=== PATIENT | female | born 1960 | race Caucasian/White ===

== ENCOUNTER 2017-07-24 01:43 | Inpatient (IN) | payer SELFPAY ==
[~2017-07-24] VITALS: Ht 162.6 cm; Wt 65.6 kg
[2017-07-24] VITALS (8 sets, daily range): BP systolic 155–185; BP diastolic 90–115; PULSE 71–80; RESP 14–18; TEMP 97.7–98.5; O2SAT 95–99
[2017-07-24] MEDS ORDERED: IOHEXOL 350 MG/ML 10 ML VIAL (for RAD DIAG) IVCONTRAST ONE (01:44)
[2017-07-24] MEDS ORDERED: SODIUM CHLORIDE 0.9% FLUSH 10 ML FLUSH IVF PRN (03:45)
--- NOTE | 2017-07-24 03:48 | PD ---
HPI Chief Complaint: Numbness/Tingling Time Seen by Provider: 03:42 Travel History International Travel<30 days: No Contact w/Intl Traveler<30days: No Traveled to known affect area: No History of Present Illness HPI 57-year-old female presents to the emergency department by private transportation the care of her spouse for evaluation of dizziness since with worsening and intermittent weakness of the upper extremities left greater than right. Patient notes that she has difficulty holding a pen and writing. Patient is left-handed. Patient denies any headache or visual disturbance. Spouse notices left-sided facial droop that is new. Patient's had no difficulty with her speech. Patient's had no visual disturbance. Patient denies dyslipidemia or loss of vision. Patient's had no chest pain shortness of breath applications nausea vomiting near-syncope or syncope. Patient denies any near fall or injury. Patient does complain of left posterior neck pain. Patient denies any sudden onset thunderclap or worst ever headache. Patient was presented treated for hypertension but takes no medications at this time. Patient admits to tobacco use. Patient has family history of heart disease in her father who passed or for prostate cancer. Patient denies personal history of CAD dyslipidemia and diabetes. [facility] Past Medical History Narrative Medical Hypertension tobaccoism nursing notes reviewed Medical History: Denies Significant Hx Diminished Hearing: No Tetanus Vaccination: Unknown Influenza Vaccination: No Past Surgical History Section: Yes (3) Social History Alcohol Use: No Tobacco Use: Yes (06/26 ppd) Substance Use: No Allergies-Medications (Allergen,Severity, Reaction): Coded Allergies: No Known Allergies (Unverified , 07/24/17) Reported Meds & Prescriptions Reported Meds & Active Scripts Active No Active Prescriptions or Reported Medications Review of Systems Except as stated in HPI: all other systems reviewed are Neg Physical Exam Narrative GENERAL: Well-developed well-nourished female in no acute distress no respiratory distress; GCS 15 SKIN: Warm and dry. HEAD: Atraumatic. Normocephalic. EYES: Pupils equal and round. Extraocular muscles intact. No scleral icterus. No injection or drainage. ENT: No nasal bleeding or discharge. Mucous membranes pink and moist. Airway is patent. NECK: Trachea midline. No JVD. No midline tenderness to direct palpation along the cervical spine no bony step-off. CARDIOVASCULAR: Regular rate and rhythm. RESPIRATORY: No accessory muscle use. Clear to auscultation. Breath sounds equal bilaterally. GASTROINTESTINAL: Abdomen soft, non-tender, nondistended. Hepatic and splenic margins not palpable. MUSCULOSKELETAL: Extremities without clubbing, cyanosis, or edema. No obvious deformities. NEUROLOGICAL: Awake and alert. No obvious cranial nerve deficits except left facial droop. Motor grossly within normal limits. Five out of 5 muscle strength in the arms and legs. No limb ataxia. No pronator drift. Sensory exam grossly intact as tested. Normal speech. PSYCHIATRIC: Appropriate mood and affect; insight and judgment normal. Data Data Last Documented VS Vital Signs Date Time Temp Pulse Resp B/P (MAP) Pulse Ox O2 Delivery O2 Flow Rate FiO2 07/24/17 01:45 97.7 80 16 176/99 (124) 98 Room Air Orders Orders Electrocardiogram (07/24/17 03:42) Prothrombin Time / Inr (Pt) (07/24/17 03:42) Act Partial Throm Time (Ptt) (07/24/17 03:42) Complete Blood Count With Diff (07/24/17 03:42) Basic Metabolic Panel (Bmp) (07/24/17 03:42) Creatine Kinase (Cpk) (07/24/17 03:42) Troponin I (07/24/17 03:42) Urinalysis - C+S If Indicated (07/24/17 03:42) Ct Brain W/O Iv Contrast(Rout) (07/24/17 03:42) Cta Brain W Iv Contrast W 3d (07/24/17 03:42) Cta Neck W Iv Contrast W 3d (07/24/17 03:42) Chest, Single Ap (07/24/17 03:42) Ecg Monitoring (07/24/17 03:42) Iv Access Insert/Monitor (07/24/17 03:42) Oximetry (07/24/17 03:42) Blood Glucose (07/24/17 03:42) Sodium Chloride 0.9% Flush (Ns Flush) (07/24/17 03:45) Urine Culture (07/24/17 04:30) Iohexol 350 Inj (Omnipaque 350 Inj) (07/24/17 01:44) Labs Laboratory Tests Test 07/24/17 03:45 07/24/17 04:30 White Blood Count 11.6 TH/MM3 Red Blood Count 5.12 MIL/MM3 Hemoglobin 16.1 GM/DL Hematocrit 44.7 % Mean Corpuscular Volume 87.3 FL Mean Corpuscular Hemoglobin 31.4 PG Mean Corpuscular Hemoglobin Concent 36.0 % Red Cell Distribution Width 13.5 % Platelet Count 226 TH/MM3 Mean Platelet Volume 8.9 FL Neutrophils (%) (Auto) 58.1 % Lymphocytes (%) (Auto) 32.7 % Monocytes (%) (Auto) 6.4 % Eosinophils (%) (Auto) 2.1 % Basophils (%) (Auto) 0.7 % Neutrophils # (Auto) 6.8 TH/MM3 Lymphocytes # (Auto) 3.8 TH/MM3 Monocytes # (Auto) 0.7 TH/MM3 Eosinophils # (Auto) 0.2 TH/MM3 Basophils # (Auto) 0.1 TH/MM3 CBC Comment AUTO DIFF Differential Comment AUTO DIFF CONFIRMED Platelet Estimate NORMAL Platelet Morphology Comment NORMAL Red Cell Morphology Comment NORMAL Prothrombin Time 10.0 SEC Prothromb Time International Ratio 1.0 RATIO Activated Partial Thromboplast Time 26.4 SEC Blood Urea Nitrogen 22 MG/DL Creatinine 1.12 MG/DL Random Glucose 97 MG/DL Calcium Level 9.4 MG/DL Sodium Level 142 MEQ/L Potassium Level 3.9 MEQ/L Chloride Level 108 MEQ/L Carbon Dioxide Level 26.1 MEQ/L Anion Gap 8 MEQ/L Estimat Glomerular Filtration Rate 50 ML/MIN Total Creatine Kinase 99 U/L Troponin I LESS THAN 0.02 NG/ML Urine Color YELLOW Urine Turbidity CLEAR Urine pH 5.5 Urine Specific [place] 1.024 Urine Protein NEG mg/dL Urine Glucose (UA) NEG mg/dL Urine Ketones NEG mg/dL Urine Occult Blood TRACE Urine Nitrite NEG Urine Bilirubin NEG Urine Urobilinogen 2.0 MG/DL Urine Leukocyte Esterase LARGE Urine RBC 2 /hpf Urine WBC 8 /hpf Urine Squamous Epithelial Cells 1 /hpf Urine Amorphous Sediment RARE Urine Mucus FEW /lpf Microscopic Urinalysis Comment CATH-CULTURE IND MDM Medical Decision Making Medical Screen Exam Complete: Yes Emergency Medical Condition: Yes Medical Record Reviewed: Yes Interpretation(s) EKG: Normal sinus rhythm rate [address] elevation or injury pattern or ectopy noted Last Impressions Neck CTA 07/24/17 0342 Signed Impressions: Service Date/Time: Monday, July 24, 2017 04:43 - CONCLUSION: 1. Examination within normal limits. Talon Rapp MD Head CTA 07/24/17341 Signed Impressions: Service Date/Time: Monday, July 24, 2017 04:43 - CONCLUSION: Examination within normal limits. Talon Rapp MD Head CT 07/24/17341 Signed Impressions: Service Date/Time: Monday, July 24, 2017 04:43 - CONCLUSION: 1. Probable small lacunar infarcts in the left basal ganglia and right brain stem. No mass effect or shift. No hemorrhage. 2. Right sphenoid sinusitis. Talon Rapp MD Chest X-Ray 07/24/17341 Signed Impressions: Service Date/Time: Monday, July 24, 2017 03:53 - CONCLUSION: 1. No active disease. Talon Rapp MD CBC & BMP Diagram 07/24/17 03:45 Calcium Level 9.4 Vital Signs Date Time Temp Pulse Resp B/P (MAP) Pulse Ox O2 Delivery O2 Flow Rate FiO2 07/24/17 01:45 97.7 80 16 176/99 (124) 98 Room Air Differential Diagnosis Dizziness, upper extremity weakness, TIA, CVA, vertebral artery dissection, Escoto 's palsy, arrhythmia, electrolyte disturbance, viral syndrome Narrative Course 57-year-old female presents with dizziness left facial droop and intermittent weakness of the upper extremity's left greater than right. Physician Communication Physician Communication call placed to [facility] Diagnosis Primary Impression: CVA (cerebral vascular accident) Scripts No Active Prescriptions or Reported Meds Hanna Kuhn MD Jul 24, 2017 03:48
[2017-07-24 03:58] LABS: AUTOMATED NEUTROPHIL # 6.8 TH/MM3 (1.8-7.7); BASOPHIL # 0.1 TH/MM3 (0-0.2); BASOPHIL % 0.7 % (0.0-2.0); EOSINOPHIL # 0.2 TH/MM3 (0-0.4); EOSINOPHIL % 2.1 % (0.0-4.0); HEMATOCRIT 44.7 % (35.0-46.0); HEMOGLOBIN 16.1 GM/DL (11.6-15.3); LYMPH % 32.7 % (9.0-44.0); LYMPHOCYTE # 3.8 TH/MM3 (1.0-4.8); MEAN CELL VOLUME 87.3 FL (80.0-100.0); MEAN CORPUSCULAR HEMOGLOBIN 31.4 PG (27.0-34.0); MEAN PLATELET VOLUME 8.9 FL (7.0-11.0); MONO % 6.4 % (0.0-8.0); MONOCYTE # 0.7 TH/MM3 (0-0.9); NEUT % 58.1 % (16.0-70.0); PLATELET COUNT 226 TH/MM3 (150-450); RED BLOOD COUNT 5.12 MIL/MM3 (4.00-5.30); RED CELL DISTRIBUTION WIDTH 13.5 % (11.6-17.2); WHITE BLOOD COUNT 11.6 TH/MM3 (4.0-11.0)
--- NOTE | 2017-07-24 04:15 | RADRPT ---
EXAM DATE/TIME: 07/24/2017 03:53 [facility] COMPARISON: No previous studies available for comparison. INDICATIONS : Short of breath. MEDICAL HISTORY : None. SURGICAL HISTORY : None. ENCOUNTER: Initial ACUITY: 1 day PAIN SCORE: 3/10 LOCATION: Bilateral chest FINDINGS: A single view of the chest demonstrates the lungs to be symmetrically aerated without evidence of mas s, infiltrate or effusion. The cardiomediastinal contours are unremarkable. Osseous structures are intact. CONCLUSION: 1. No active disease. Talon Rapp MD on July 24, 2017 at 4:12 Board Certified Radiologist. This report was verified electronically.
[2017-07-24 04:24] LABS: BICARBONATE 26.1 MEQ/L (21.0-32.0); BLOOD UREA NITROGEN 22 MG/DL (7-18); CALCIUM 9.4 MG/DL (8.5-10.1); CHLORIDE 108 MEQ/L (98-107); CREATININE 1.12 MG/DL (0.50-1.00); GLOMERULAR FILTRATION RATE 50 ML/MIN (>89); GLUCOSE,RANDOM 97 MG/DL (74-106); SODIUM (NA) 142 MEQ/L (136-145); TROPONIN I LESS THAN 0.02 NG/ML (0.02-0.05)
[2017-07-24 04:40] LABS: AMORPHOUS SEDIMENT, URINE RARE; BILIRUBIN, URINE NEG (NEG); BLOOD, URINE TRACE (NEG); GLUCOSE,URINE NEG (NEG); KETONE, URINE NEG (NEG); MUCUS URINE FEW /lpf (OCC); NITRITE,URINE NEG (NEG); PH, URINE 5.5 (5.0-8.5); SQUAMOUS EPITHELIAL CELL URINE 1 /hpf (0-5); URINE COLOR YELLOW (YELLW/STRAW); URINE LEUKOCYTE ESTERASE LARGE (NEG)
--- NOTE | 2017-07-24 05:08 | RADRPT ---
EXAM DATE/TIME: 07/24/2017 04:43 [facility] COMPARISON: No previous studies available for comparison. INDICATIONS : Dizziness with bilateral numbness past 3 days. RADIATION DOSE: 34.69 CTDIvol (mGy) MEDICAL HISTORY : None SURGICAL HISTORY : None. ENCOUNTER: Initial ACUITY: 3 days PAIN SCALE: 0/10 LOCATION: cranial TECHNIQUE: Multiple contiguous axial images were obtained of the head. Using automated exposure control and adj ustment of the mA and/or kV according to patient size, radiation dose was kept as low as reasonably a chievable to obtain optimal diagnostic quality images. DICOM format image data is available electro nically for review and comparison. FINDINGS: No focal mass or midline shift. No hydrocephalus. No acute hemorrhage. There is a focal subcentimeter low attenuation area in jeffrey just the right of midline that may represent a small infarct. Also alhaji te lacunar infarct left basal ganglia. CONCLUSION: 1. Probable small lacunar infarcts in the left basal ganglia and right brain stem. No mass effect or shift. No hemorrhage. 2. Right sphenoid sinusitis. Talon Rapp MD on July 24, 2017 at 5:03 Board Certified Radiologist. This report was verified electronically.
--- NOTE | 2017-07-24 05:25 | RADRPT ---
EXAM DATE/TIME: 07/24/2017 04:43 [facility] COMPARISON: No previous studies available for comparison. INDICATIONS : Dizziness with bilateral numbness past 3 days. IV CONTRAST: 75 cc Omnipaque 350 (iohexol) IV ; Cumulative dose for multiple exams. RADIATION DOSE: 26.00 CTDIvol (mGy) ; Combined studies MEDICAL HISTORY : None SURGICAL HISTORY : None. ENCOUNTER: Initial ACUITY: 3 days PAIN SCALE: 0/10 LOCATION: cranial TECHNIQUE: Volumetric scanning was performed using a multi-row detector CT scanner. The data was post processed with a variety of visualization algorithms including full volume maximum intensity projection, multi -planar sliding thin slab reformation, curved planar reformation, and surface rendering techniques. Using automated exposure control and adjustment of the mA and/or kV according to patient size, radiat ion dose was kept as low as reasonably achievable to obtain optimal diagnostic quality images. DICO M format image data is available electronically for review and comparison. FINDINGS: There is excellent visualization of the major intracranial arteries out to the second-order branch ve ssels. There is no evidence for aneurysm, vessel truncation or stenosis, and no evidence for vascula r malformation. CONCLUSION: Examination within normal limits. Talon Rapp MD on July 24, 2017 at 5:16 Board Certified Radiologist. This report was verified electronically.
--- NOTE | 2017-07-24 05:26 | RADRPT ---
EXAM DATE/TIME: 07/24/2017 04:43 [facility] COMPARISON: No previous studies available for comparison. INDICATIONS : Dizziness with bilateral numbness past 3 days. IV CONTRAST: 75 cc Omnipaque 350 (iohexol) IV ; Cumulative dose for multiple exams. RADIATION DOSE: 26.00 CTDIvol (mGy) MEDICAL HISTORY : None SURGICAL HISTORY : None. ENCOUNTER: Initial ACUITY: 3 days PAIN SCALE: 0/10 LOCATION: neck Elevated flow velocities and ICA/CCA ratios have been found to correlate with increased degrees of vessel stenosis, calculated as percentage of diameter relative to a normal segment of distal ICA/CCA. TECHNIQUE: Volumetric scanning was performed using a multirow detector CT scanner. The data was post processed with a variety of visualization algorithms including full-volume maximum intensity projection, multip lanar sliding thin-slab reformation, curved-planar reformation, and surface-rendering techniques. Us ing automated exposure control and adjustment of the mA and/or kV according to patient size, radiatio n dose was kept as low as reasonably achievable to obtain optimal diagnostic quality images. DICOM f ormat image data is available electronically for review and comparison. FINDINGS: Great vessel origins both common carotid arteries are patent. There is mild plaque at both carotid bi furcations without hemodynamically significant stenosis. Right vertebral artery is dominant. Basilar artery, anterior, middle and posterior cerebral arteries are patent. Both internal carotid arteries a re patent. The right internal carotid artery is markedly tortuous. CONCLUSION: 1. Examination within normal limits. Talon Rapp MD on July 24, 2017 at 5:23 Board Certified Radiologist. This report was verified electronically.
[2017-07-24] MEDS ORDERED: DEXTROSE 50% IN WATER 50 ML VIAL(D50) IV PUSH PRN (06:00)
[2017-07-24] MEDS ORDERED: cefTRIAXone INJ 1,000 MG in SODIUM CHLORIDE 0.9% INJ 100 ML IV ONE (06:00)
[2017-07-24] MEDS ORDERED: ENALAPRILAT 1.25 MG/ML VIAL IV PUSH PRN (06:00)
[2017-07-24] MEDS ORDERED: SODIUM CHLORIDE 0.9% FLUSH 10 ML FLUSH IV FLUSH PRN (06:00)
[2017-07-24] MEDS ORDERED: GLUCAGON 1 MG/ML VIAL OTHER PRN (06:00)
[2017-07-24] MEDS: SODIUM CHLOR 0.9% 1000 ML INJ 1,000 ML IV SCH ×2 (06:12→10:48)
[2017-07-24] MEDS: INSULIN ASPART SUPPLEMENTAL SCALE SQ SCH ×4 (08:00→20:54)
[2017-07-24] MEDS ORDERED: ASPIRIN 81 MG CHEW TAB PO SCH (09:00)
--- NOTE | 2017-07-24 09:09 | PD.CONS ---
History of Present Illness Service Neurology Consult Requested By er Reason for Consult stroke Primary Care Physician No Primary Care Physician History of Present Illness 57-year-old female admitted for stroke. c/o of episodes of tingling in both of her hands. no weakness. no vision loss, no gait changes. no speech changes. onset: last sunday not tpa candidate due to time of onset. not taking any medications. was taking bp meds 2 years ago but stopped. not seeing a pcp. states her bp runs 160/90 at home. smokes 1.5 ppd x decades. mild neck pain. no radicular symptoms. glucose 97. cta brain/carotids nml. ct brain left subcortical and rt pontine infarcts. Family hx: +stroke, htn. sister with cerebral aneurysm rupture stroke, rt sided weakness. PFSH Past Medical History Narrative Medical Hypertension tobaccoism Past Surgical History Section: Yes (3) Social History Alcohol Use: No Tobacco Use: Yes (1 1/2 ppd) Substance Use: No Allergies-Medications (Allergen,Severity, Reaction): Coded Allergies: No Known Allergies (Unverified , 07/24/17) Reported Meds & Prescriptions Reported Meds & Active Scripts Active No Active Prescriptions or Reported Medications Review of Systems Except as stated in HPI: all other systems reviewed are Neg Review of Systems All other ROS: ROS reviewed as documented in chart Past Family Social History Allergies: Coded Allergies: No Known Allergies (Unverified , 07/24/17) Active Ordered Medications Current Medications Medications (Trade) Dose Ordered Sig/Jaime Route Start Time Stop Time Status Last Admin (NS Flush) 2 ml BID IV FLUSH 07/24/17 09:00 (NS Flush) 2 ml UNSCH PRN IV FLUSH 07/24/17 06:00 Sodium Chloride 1,000 ml @ 70 mls/hr [id number] IV 07/24/17 05:47 07/24/17 06:12 (Vasotec Inj) 1.25 mg Q4H PRN IV PUSH 07/24/17 06:00 (Aspirin Chew) 81 mg DAILY PO 07/24/17 09:00 (Pravachol) 40 mg HS PO 07/24/17 21:00 (NovoLOG SUPPLEMENTAL SCALE) 1 ACHS SQ 07/24/17 08:00 (D50w (Vial) Inj) 50 ml UNSCH PRN IV PUSH 07/24/17 06:00 (Glucagon Inj) 1 mg UNSCH PRN OTHER 07/24/17 06:00 Ceftriaxone Sodium 1000 mg/ Sodium Chloride 100 ml @ 200 mls/hr Q24H IV 07/25/17 06:00 Exam I&O / VS Vital Signs Date Time Temp Pulse Resp B/P (MAP) Pulse Ox O2 Delivery O2 Flow Rate FiO2 07/24/17 07:16 75 14 165/90 (115) 99 Room Air 07/24/17 06:36 18 99 Room Air 07/24/17 06:31 18 99 Room Air 07/24/17 01:45 97.7 80 16 176/99 (124) 98 Room Air General: Alert and Oriented, No acute distress Eye: EOMI Respiratory: Non-labored respirations Cardiology: Normal rate Musculoskeletal: ROM Neurologic: Alert, Oriented, Normal sensory, Normal motor, No focal defects, CN II-XII intact, Normal DTR's Psychiatric: Cooperative, Appropriate mood & affect, Normal judgement, Non- suicidal Exam Comments alert, ox 3, follows, articulate, fluent, eomi, ou 4-3mm, vff, v1-3 nml, minimal reduced rt orbicularis jeane crease otherwise symmetric, tongue mid, no drift, 5/5 all 4 ext, pin nml all 4, negative phalens citlalli, no clonus, planter flexor Review/Management Diagnosis/Plan: (1) Acute ischemic left MCA stroke ICD Codes: I63.512 - Cerebral infarction due to unspecified occlusion or stenosis of left middle cerebral artery Status: Acute Plan: possible although symptoms don't all match imaging findings could have had htn urgency; r/o cervical cord lesion infarcts may be old and likely 2/2 small vessel dz recs mri brain, cspine aspirin p.t. echo lipids tobacco cessation/ bp control, and f/u with pcp follow exam (2) HTN (hypertension) ICD Codes: I10 - Essential (primary) hypertension Status: Chronic Plan: goal 120/80 compliance with medication and f/u with pcp (3) Tobacco use ICD Codes: Z72.0 - Tobacco use Status: Chronic Plan: cessation d/w pt Problem Qualifiers (1) HTN (hypertension): Qualified Codes: I10 - Essential (primary) hypertension Woodrow Maloney MD Jul 24, 2017 09:09
[2017-07-24] MEDS: HEPARIN SODIUM - SQ 10,000 UNITS/ML VIAL SQ SCH ×2 (10:49→20:46)
[2017-07-24] MEDS: SODIUM CHLORIDE 0.9% FLUSH 10 ML FLUSH IV FLUSH SCH ×2 (10:49→20:46)
--- NOTE | 2017-07-24 13:34 | RADRPT ---
EXAM DATE/TIME: 07/24/2017 13:06 [facility] COMPARISON: CTA CAROTID ARTERIES W 3D RECON, July 24, 2017, 4:43. CTA BRAIN W 3D RECON, July 24, 2017, 4:[address] BRAIN W/O CONTRAST, July 24, 2017, 4:43. INDICATIONS : Numbness in hands. Facial droop. MEDICAL HISTORY : Hypertension. SURGICAL HISTORY : section. ENCOUNTER: Initial ACUITY: 1 day PAIN SCORE: 0/10 LOCATION: head TECHNIQUE: Multiplanar, multisequence MRI of the brain was performed without contrast. FINDINGS: CEREBRUM: The ventricles are normal for age. No evidence of midline shift, mass lesion, hemorrhage or acute in farction. No extraaxial fluid collections are seen. The pituitary gland and suprasellar cistern are normal in configuration. WHITE MATTER: There is a mild to Spurs punctate areas of microvascular ischemic demyelinization in deep white matte r. Small area of remote lacunar infarction is noted in deep white matter in the low left parietal reg ion. POSTERIOR FOSSA: The cerebellum and brainstem are intact. The 4th ventricle is midline. The cerebellopontine angle is unremarkable. The cerebellar tonsils are normal in position. DIFFUSION IMAGING: The small 1.1 cm area of abnormality in the right brain stem jeffrey reveals increased signal intensity on T2 and flair weighted imaging with diffusion abnormality consistent with acute infarction.. EXTRACRANIAL: The visualized portions of the orbits are normal. Air-fluid level is noted in the right sphenoid sinu s compartment and CONCLUSION: Right brain stem approximately 1 cm area of acute infarction. This correlates with CT scan Mild punctate microvascular ischemic demyelination deep white matter with a remote small area of lacunar infarction in the left parietal region. Air-fluid level noted in the right sphenoid sinus compartmen t Jimy Brown MD on July 24, 2017 at 13:26 Board Certified Radiologist. This report was verified electronically.
[2017-07-24] MEDS ORDERED: TEMAZEPAM 15 MG CAP PO PRN (18:15)
[2017-07-24] MEDS ORDERED: ACETAMINOPHEN 325 MG TAB PO PRN (18:15)
[2017-07-24] MEDS ORDERED: ONDANSETRON HCL 4 MG/2 ML VIAL IV PUSH PRN (18:15)
[2017-07-24] MEDS ORDERED: RESP: ALBUTEROL 2.5 MG/IPRATROPIUM 0.5 MG NEB (PRN) NEB (18:15)
--- NOTE | 2017-07-24 18:31 | HHI.HP ---
[facility] No Primary Care Physician Admission Diagnosis cva;uti Diagnoses: (1) Acute ischemic left MCA stroke (2) HTN (hypertension) (3) UTI (urinary tract infection) (4) Tobacco use Chief Complaint: Dizziness and tingling in hands and fingers Travel History International Travel<30 Days: No Contact w/Intl Traveler <30 Da: No Traveled to Known Affected Are: No History of Present Illness 57 year-old female with a history of 30+ year of tobacco use, prior history of hypertension presented to the ED for evaluation of dizziness and worsening and extremity weakness of upper extremities associated with tingling 4 days duration. Patient reported difficulty holding a pen in her left hand and writing . Although patient denies any left facial droop, however this was noted by her spouse. She denies any lower extremities weakness. She has no chest pain or shortness of breath. A CT head in the ED revealed probable lacunar infarct in left basal ganglia, for which neurology was consulted. During my exam, patient was alert and oriented 3. Vitals were unremarkable. Abnormal labs include WBC 11.6, BUN/creatinine 22/1.12 and a UA that was positive for leukocyte esterase. Review of Systems Except as stated in HPI: all other systems reviewed are Neg Past Family Social History Past Medical History Prior h/o of Hypertension Tobaccoism Past Surgical History 3 Reported Medications Not currently on any medication Allergies: Coded Allergies: No Known Allergies (Unverified , 07/24/17) Family History Mother with a history of hypertension, hyperlipidemia, breast cancer Father from complication of lung cancer Social History Patient reported 30+ years of 1 pack per day however denies any alcohol or illicit drug intake Physical Exam Vital Signs Vital Signs Date Time Temp Pulse Resp B/P (MAP) Pulse Ox O2 Delivery O2 Flow Rate FiO2 07/24/17 17:16 98.1 71 18 161/95 (117) 95 07/24/17 16:43 07/24/17 16:08 77 14 155/96 (115) 99 Room Air 07/24/17 12:36 80 16 185/115 (138) 99 Room Air 07/24/17 07:16 75 14 165/90 (115) 99 Room Air 07/24/17 06:36 18 99 Room Air 07/24/17 06:31 18 99 Room Air 07/24/17 01:45 97.7 80 16 176/99 (124) 98 Room Air Physical Exam GENERAL: This is a well-nourished, well-developed patient, in no apparent distress. SKIN: No rashes, ecchymoses or lesions. Cool and dry. HEAD: Atraumatic. Normocephalic. No temporal or scalp tenderness. EYES: Pupils equal round and reactive. Extraocular motions intact. No scleral icterus. No injection or drainage. ENT: Nose without bleeding, purulent drainage or septal hematoma. Throat without erythema, tonsillar hypertrophy or exudate. Uvula midline. Airway patent. NECK: Trachea midline. No JVD or lymphadenopathy. Supple, nontender, no meningeal signs. CARDIOVASCULAR: Regular rate and rhythm without murmurs, gallops, or rubs. RESPIRATORY: Clear to auscultation. Breath sounds equal bilaterally. No wheezes , rales, or rhonchi. GASTROINTESTINAL: Abdomen soft, non-tender, nondistended. No hepato-splenomegaly , or palpable masses. No guarding. MUSCULOSKELETAL: Extremities without clubbing, cyanosis, or edema. No joint tenderness, effusion, or edema noted. No calf tenderness. Negative Homans sign bilaterally. NEUROLOGICAL: Awake and alert. Cranial nerves II through XII intact. Motor and sensory grossly within normal limits. Five out of 5 muscle strength in all muscle groups. Normal speech. Laboratory Laboratory Tests Test 07/24/17 03:45 07/24/17 04:30 White Blood Count 11.6 Red Blood Count 5.12 Hemoglobin 16.1 Hematocrit 44.7 Mean Corpuscular Volume 87.3 Mean Corpuscular Hemoglobin 31.4 Mean Corpuscular Hemoglobin Concent 36.0 Red Cell Distribution Width 13.5 Platelet Count 226 Mean Platelet Volume 8.9 Neutrophils (%) (Auto) 58.1 Lymphocytes (%) (Auto) 32.7 Monocytes (%) (Auto) 6.4 Eosinophils (%) (Auto) 2.1 Basophils (%) (Auto) 0.7 Neutrophils # (Auto) 6.8 Lymphocytes # (Auto) 3.8 Monocytes # (Auto) 0.7 Eosinophils # (Auto) 0.2 Basophils # (Auto) 0.1 CBC Comment AUTO DIFF Differential Comment AUTO DIFF CONFIRMED Platelet Estimate NORMAL Platelet Morphology Comment NORMAL Red Cell Morphology Comment NORMAL Prothrombin Time 10.0 Prothromb Time International Ratio 1.0 Activated Partial Thromboplast Time 26.4 Blood Urea Nitrogen 22 Creatinine 1.12 Random Glucose 97 Calcium Level 9.4 Sodium Level 142 Potassium Level 3.9 Chloride Level 108 Carbon Dioxide Level 26.1 Anion Gap 8 Estimat Glomerular Filtration Rate 50 Total Creatine Kinase 99 Troponin I LESS THAN 0.02 Urine Color YELLOW Urine Turbidity CLEAR Urine pH 5.5 Urine Specific [place] 1.024 Urine Protein NEG Urine Glucose (UA) NEG Urine Ketones NEG Urine Occult Blood TRACE Urine Nitrite NEG Urine Bilirubin NEG Urine Urobilinogen 2.0 Urine Leukocyte Esterase LARGE Urine RBC 2 Urine WBC 8 Urine Squamous Epithelial Cells 1 Urine Amorphous Sediment RARE Urine Mucus FEW Microscopic Urinalysis Comment CATH-CULTURE IND Date/Time Source Procedure Growth Status 07/24/17 04:30 Urine Catheterized Urine Urine Culture Pending Received Result Diagram: 07/24/1734407/24/17344 Imaging Last Impressions Neck CTA 07/24/17341 Signed Impressions: Service Date/Time: Monday, July 24, 2017 04:43 - CONCLUSION: 1. Examination within normal limits. Talon Rapp MD Head CTA 07/24/17341 Signed Impressions: Service Date/Time: Monday, July 24, 2017 04:43 - CONCLUSION: Examination within normal limits. aTlon Rapp MD Head CT 07/24/17341 Signed Impressions: Service Date/Time: Monday, July 24, 2017 04:43 - CONCLUSION: 1. Probable small lacunar infarcts in the left basal ganglia and right brain stem. No mass effect or shift. No hemorrhage. 2. Right sphenoid sinusitis. Talon Rapp MD Chest X-Ray 07/24/17341 Signed Impressions: Service Date/Time: Monday, July 24, 2017 03:53 - CONCLUSION: 1. No active disease. Talon Rapp MD Brain MRI 07/24/17 0000 Signed Impressions: Service Date/Time: Monday, July 24, 2017 13:06 - CONCLUSION: Right brain stem approximately 1 cm area of acute infarction. This correlates with CT scan Mild punctate microvascular ischemic demyelination deep white matter with a remote small area of lacunar infarction in the left parietal region. Air- fluid level noted in the right sphenoid sinus compartment Jimy Brown MD Septic Shock Reassessment Septic shock perfusion: reassessment completed Caprini VTE Risk Assessment Caprini VTE Risk Assessment: No/Low Risk (score <= 1) Caprini Risk Assessment Model Point Value = 1 Point Value = 2 Point Value = 3 Point Value = 5 Age 41-60 Minor surgery BMI > 25 kg/m2 Swollen legs Varicose veins or History of unexplained or recurrent spontaneous Oral contraceptives or hormone replacement Sepsis (< 1 month) Serious lung disease, including pneumonia (< 1 month) Abnormal pulmonary function Acute myocardial infarction Congestive heart failure (< 1 month) History of inflammatory bowel disease Medical patient at bed rest Age 61-74 Arthroscopic surgery Major open surgery (> 45 min) Laparoscopic surgery (> 45 min) Malignancy Confined to bed (> 72 hours) Immobilizing plaster cast Central venous access Age >= 75 History of VTE Family history of VTE Factor V Leiden Prothrombin [id number] Lupus anticoagulant Anticardiolipin antibodies Elevated serum homocysteine Heparin-induced thrombocytopenia Other congenital or acquired thrombophilia Stroke (< 1 month) Elective arthroplasty Hip, pelvis, or leg fracture Acute spinal cord injury (< 1 month) Prophylaxis Regimen Total Risk Factor Score Risk Level Prophylaxis Regimen 0-1 Low Early ambulation 2 Moderate Order ONE of the following: *Sequential Compression Device (SCD) *Heparin 5000 units SQ BID 3-4 Higher Order ONE of the following medications: *Heparin 5000 units SQ TID *Enoxaparin/Lovenox 40 mg SQ daily (WT < 150 kg, CrCl > 30 mL/min) *Enoxaparin/Lovenox 30 mg SQ daily (WT < 150 kg, CrCl > 10-29 mL/min) *Enoxaparin/Lovenox 30 mg SQ BID (WT < 150 kg, CrCl > 30 mL/min) AND/OR *Sequential Compression Device (SCD) 5 or more Highest Order ONE of the following medications: *Heparin 5000 units SQ TID (Preferred with Epidurals) *Enoxaparin/Lovenox 40 mg SQ daily (WT < 150 kg, CrCl > 30 mL/min) *Enoxaparin/Lovenox 30 mg SQ daily (WT < 150 kg, CrCl > 10-29 mL/min) *Enoxaparin/Lovenox 30 mg SQ BID (WT < 150 kg, CrCl > 30 mL/min) AND *Sequential Compression Device (SCD) Assessment and Plan Problem List: (1) Acute ischemic left MCA stroke ICD Code: I63.512 - Cerebral infarction due to unspecified occlusion or stenosis of left middle cerebral artery Status: Acute (2) UTI (urinary tract infection) ICD Code: N39.0 - Urinary tract infection, site not specified (3) HTN (hypertension) ICD Code: I10 - Essential (primary) hypertension Status: Chronic (4) Tobacco use ICD Code: Z72.0 - Tobacco use Status: Chronic (5) ARF (acute renal failure) ICD Code: N17.9 - Acute kidney failure, unspecified Assessment and Plan 57-year-old female with Acute CVA: Treatment per stroke protocol -Continue with aspirin -Start statin therapy -NIHSS, Neuro checks, Monitor on telemetry -PT/OT/ST evaluations, consult rehab medicine -Allow permissive HTN, IV Vasotec and IV labetalol if SBP >220 -Check lipid profile and HgbA1c -Check carotid U/S -Head CT 07/24/16 noted and review by me with finding of probable lacunar infarct in the left basal ganglia -Check brain MRI/MRA -Check echocardiogram and place Holter monitoring -Neurology consulted History of hypertension: We will allow for permissive hypertension Acute renal failure: Prerenal, likely secondary to dehydration, gentle IV fluid hydration and monitor BUN and creatinine. Avoid all nephrotoxic drugs Nicotinic dependence: Counseled to quit, place nicotine patch UTI: Started post Rocephin IV 1 in ED, continue antibiotics pending urine culture DVT prophylaxis: Bilateral SCDs Code Status Full code Discussed Condition With Patient, mother, sister, , ED physician Physician Certification 2 Midnight Certification Type: Admission for Inpatient Services Order for Inpatient Services The services are ordered in accordance with Medicare regulations or non- Medicare payer requirements, as applicable. In the case of services not specified as inpatient-only, they are appropriately provided as inpatient services in accordance with the 2-midnight benchmark. Estimated LOS (days): 2 days is the estimated time the patient will need to remain in the hospital, assuming treatment plan goals are met and no additional complications. Post-Hospital Plan: Not yet determined Problem Qualifiers (1) HTN (hypertension): Qualified Codes: I10 - Essential (primary) hypertension Andrez Pena MD Jul 24, 2017 18:31
[2017-07-24] MEDS ORDERED: PRAVASTATIN SOD 40 MG TAB PO SCH (21:00)
[2017-07-25] VITALS: BP 144/87; PULSE 73; RESP 18; TEMP 98.5; O2SAT 96
--- NOTE | 2017-07-25 00:33 | EKG ---
Date Performed: 07/24/2017 Time Performed: 03:34:44 PTAGE: 57 years EKG: Sinus rhythm NORMAL ECG NO PREVIOUS TRACING DOCTOR: Lamine Mayers Interpretating Date/Time 07/25/2017 00:32:16
[2017-07-25 04:00] VITALS: BP 184/104; PULSE 69; RESP 18; TEMP 98.3; O2SAT 97
[2017-07-25] MEDS ORDERED: cefTRIAXone INJ 1,000 MG in SODIUM CHLORIDE 0.9% INJ 100 ML IV SCH (06:00)
[2017-07-25 08:00] VITALS: BP 176/97; PULSE 70; PULSE 89; RESP 18; TEMP 98.6; O2SAT 97
[2017-07-25] MEDS: INSULIN ASPART SUPPLEMENTAL SCALE SQ SCH ×2 (08:00→12:00)
--- NOTE | 2017-07-25 08:39 | HHI.PR ---
Review/Management Diagnosis/Plan: (1) Acute ischemic left MCA stroke ICD Codes: I63.512 - Cerebral infarction due to unspecified occlusion or stenosis of left middle cerebral artery Status: Acute Plan: rt pontine infarct doing well with good strength recs bp control aspirin echo-pending lipids/[id number]- start statin if ldl >70 tobacco cessation/ bp control, and f/u with pcp d/c planning from neuro and outpatient f/u if echo with nml ef (2) HTN (hypertension) ICD Codes: I10 - Essential (primary) hypertension Status: Chronic Plan: goal 120/80 compliance with medication and f/u with pcp (3) Tobacco use ICD Codes: Z72.0 - Tobacco use Status: Chronic Plan: cessation d/w pt Subjective Subjective Comments No acute events reported No headache No chest pain No dyspnea Active Medications Current Medications Medications (Trade) Dose Ordered Sig/Jaime Route Start Time Stop Time Status Last Admin (NS Flush) 2 ml BID IV FLUSH 07/24/17 09:00 07/24/17 20:46 (NS Flush) 2 ml UNSCH PRN IV FLUSH 07/24/17 06:00 Sodium Chloride 1,000 ml @ 70 mls/hr [id number] IV 07/24/17 05:47 07/24/17 10:48 (Vasotec Inj) 1.25 mg Q4H PRN IV PUSH 07/24/17 06:00 (Pravachol) 40 mg HS PO 07/24/17 21:00 07/24/17 20:46 (NovoLOG SUPPLEMENTAL SCALE) 1 ACHS SQ 07/24/17 08:00 (D50w (Vial) Inj) 50 ml UNSCH PRN IV PUSH 07/24/17 06:00 (Glucagon Inj) 1 mg UNSCH PRN OTHER 07/24/17 06:00 Ceftriaxone Sodium 1000 mg/ Sodium Chloride 100 ml @ 200 mls/hr Q24H IV 07/25/17 06:00 07/25/17 05:17 (Aspirin) 325 mg DAILY PO 07/25/17 09:00 (Heparin Inj) 5,000 units BID SQ 07/24/17 09:45 07/24/17 20:46 (Duoneb Neb) 1 ampule Q2HR NEB PRN NEB 07/24/17 18:15 (Tylenol) 650 mg Q4H PRN PO 07/24/17 18:15 (Zofran Inj) 4 mg Q6H PRN IV PUSH 07/24/17 18:15 (Restoril) 15 mg HS PRN PO 07/24/17 18:15 07/24/17 20:45 Allergies Allergies Coded Allergies No Known Allergies (Unverified07/24/17) Review of Systems All other ROS: ROS reviewed as documented in chart Exam I&O / VS 07/25/17 07/25/17 07/26/17 15:00 23:00 07:00 # Voids 0 # Bowel Movements 0 Vital Signs Date Time Temp Pulse Resp B/P (MAP) Pulse Ox O2 Delivery O2 Flow Rate FiO2 07/25/17 04:00 98.3 69 18 184/104 (130) 97 07/25/17 00:00 98.5 73 18 144/87 (106) 96 07/24/17 23:30 97 07/24/17 20:00 98.5 79 18 178/102 (127) 97 07/24/17 17:16 98.1 71 18 161/95 (117) 95 07/24/17 16:43 07/24/17 16:08 77 14 155/96 (115) 99 Room Air 07/24/17 12:36 80 16 185/115 (138) 99 Room Air General: Alert and Oriented, No acute distress Eye: EOMI Respiratory: Non-labored respirations Cardiology: Normal rate Musculoskeletal: ROM Neurologic: Alert, Oriented, Normal sensory, Normal motor, No focal defects, CN II-XII intact, Normal DTR's Psychiatric: Cooperative, Appropriate mood & affect, Normal judgement, Non- suicidal Exam Comments alert, ox 3, follows, articulate, fluent, eomi, ou 4-3mm, vff, v1-3 nml, minimal reduced rt orbicularis jeane crease otherwise symmetric, tongue mid, no drift, 5/5 all 4 ext, pin nml all 4, negative phalens citlalli, no clonus, planter flexor Objective Micro and Labs Date/Time Source Procedure Growth Status 07/24/17 04:30 Urine Catheterized Urine Urine Culture Pending Received Problem Qualifiers (1) HTN (hypertension): Qualified Codes: I10 - Essential (primary) hypertension Woodrow Maloney MD Jul 25, 2017 08:39
[2017-07-25 08:46] LABS: AUTOMATED NEUTROPHIL # 4.9 TH/MM3 (1.8-7.7); BASOPHIL % 0.4 % (0.0-2.0); EOSINOPHIL # 0.2 TH/MM3 (0-0.4); EOSINOPHIL % 2.1 % (0.0-4.0); HEMATOCRIT 45.1 % (35.0-46.0); HEMOGLOBIN 15.5 GM/DL (11.6-15.3); LYMPH % 33.7 % (9.0-44.0); LYMPHOCYTE # 2.8 TH/MM3 (1.0-4.8); MEAN CELL VOLUME 89.8 FL (80.0-100.0); MEAN CORPUSCULAR HEMOGLOBIN 30.9 PG (27.0-34.0); MEAN CORPUSCULAR HGB CONC 34.4 % (32.0-36.0); MEAN PLATELET VOLUME 8.8 FL (7.0-11.0); MONOCYTE # 0.5 TH/MM3 (0-0.9); NEUT % 57.8 % (16.0-70.0); PLATELET COUNT 215 TH/MM3 (150-450); RED BLOOD COUNT 5.02 MIL/MM3 (4.00-5.30); RED CELL DISTRIBUTION WIDTH 13.5 % (11.6-17.2); WHITE BLOOD COUNT 8.4 TH/MM3 (4.0-11.0)
[2017-07-25] MEDS ORDERED: ASPIRIN 325 MG TAB PO SCH (09:00)
[2017-07-25] MEDS: SODIUM CHLORIDE 0.9% FLUSH 10 ML FLUSH IV FLUSH SCH (09:00)
[2017-07-25 09:03] LABS: ALBUMIN 3.7 GM/DL (3.4-5.0); AST (GOT) 13 U/L (15-37); BLOOD UREA NITROGEN 17 MG/DL (7-18); CALCIUM 9.2 MG/DL (8.5-10.1); CHLORIDE 107 MEQ/L (98-107); CHOLESTEROL 196 MG/DL (120-200); CREATININE 0.89 MG/DL (0.50-1.00); GLOMERULAR FILTRATION RATE 66 ML/MIN (>89); GLUCOSE,RANDOM 91 MG/DL (74-106); SODIUM (NA) 141 MEQ/L (136-145); TRIGLYCERIDES 147 MG/DL (42-150)
[2017-07-25 09:08] LABS: ALKALINE PHOSPHATASE 118 U/L (45-117); ALT (GPT) 20 U/L (10-53); CHOLESTEROL/ HDL RATIO 4.34 RATIO; HDL CHOLESTEROL 45.1 MG/DL (40.0-60.0); LDL CHOLESTEROL 122 MG/DL (0-99); TOTAL BILIRUBIN ADULT 0.3 MG/DL (0.2-1.0); TOTAL PROTEIN 7.1 GM/DL (6.4-8.2)
[2017-07-25] MEDS: HEPARIN SODIUM - SQ 10,000 UNITS/ML VIAL SQ SCH (09:08)
[2017-07-25 09:14] VITALS: O2SAT 97
[2017-07-25] MEDS ORDERED: METOPROLOL TARTRATE 50 MG TAB PO SCH (11:30)
--- NOTE | 2017-07-25 11:30 | HHI.PR ---
Subjective Remarks Follow acute CVA/UTI 07/25/17-patient seen and examined; she was up and ambulating; denies any significant Upper extremities tingling or weakness Objective Vitals Vital Signs Date Time Temp Pulse Resp B/P (MAP) Pulse Ox O2 Delivery O2 Flow Rate FiO2 07/25/17 09:14 97 07/25/17 08:00 98.6 70 18 176/97 (123) 97 07/25/17 04:00 98.3 69 18 184/104 (130) 97 07/25/17 00:00 98.5 73 18 144/87 (106) 96 07/24/17 23:30 97 07/24/17 20:00 98.5 79 18 178/102 (127) 97 07/24/17 17:16 98.1 71 18 161/95 (117) 95 07/24/17 16:43 07/24/17 16:08 77 14 155/96 (115) 99 Room Air 07/24/17 12:36 80 16 185/115 (138) 99 Room Air I/O 07/24/17 07/24/17 07/24/17 07/25/17 07/25/17 07/25/17 07:00 15:00 23:00 07:00 15:00 23:00 # Voids 1 0 # Bowel Movements 0 0 Result Diagram: 07/25/17 0806 07/25/17 0806 Imaging Last Impressions Neck CTA 07/24/17341 Signed Impressions: Service Date/Time: Monday, July 24, 2017 04:43 - CONCLUSION: 1. Examination within normal limits. Talon Rapp MD Head CTA 07/24/17341 Signed Impressions: Service Date/Time: Monday, July 24, 2017 04:43 - CONCLUSION: Examination within normal limits. Talon Rapp MD Head CT 07/24/17341 Signed Impressions: Service Date/Time: Monday, July 24, 2017 04:43 - CONCLUSION: 1. Probable small lacunar infarcts in the left basal ganglia and right brain stem. No mass effect or shift. No hemorrhage. 2. Right sphenoid sinusitis. Talon Rapp MD Chest X-Ray 07/24/17341 Signed Impressions: Service Date/Time: Monday, July 24, 2017 03:53 - CONCLUSION: 1. No active disease. Talon Rapp MD Brain MRI 07/24/17 0000 Signed Impressions: Service Date/Time: Monday, July 24, 2017 13:06 - CONCLUSION: Right brain stem approximately 1 cm area of acute infarction. This correlates with CT scan Mild punctate microvascular ischemic demyelination deep white matter with a remote small area of lacunar infarction in the left parietal region. Air- fluid level noted in the right sphenoid sinus compartment Jimy Brown MD Objective Remarks GENERAL: NAD SKIN: Warm and dry. HEAD: Normocephalic. EYES: No scleral icterus. No injection or drainage. NECK: Supple, trachea midline. No JVD or lymphadenopathy. CARDIOVASCULAR: Regular rate and rhythm without murmurs, gallops, or rubs. RESPIRATORY: Breath sounds equal bilaterally. No accessory muscle use. GASTROINTESTINAL: Abdomen soft, non-tender, nondistended. MUSCULOSKELETAL: No cyanosis, or edema. BACK: Nontender without obvious deformity. No CVA tenderness. Procedures None A/P Problem List: (1) Acute ischemic left MCA stroke ICD Code: I63.512 - Cerebral infarction due to unspecified occlusion or stenosis of left middle cerebral artery Status: Acute (2) UTI (urinary tract infection) ICD Code: N39.0 - Urinary tract infection, site not specified (3) HTN (hypertension) ICD Code: I10 - Essential (primary) hypertension Status: Chronic (4) Tobacco use ICD Code: Z72.0 - Tobacco use Status: Chronic (5) ARF (acute renal failure) ICD Code: N17.9 - Acute kidney failure, unspecified Assessment and Plan 57-year-old female with Acute CVA: Treatment per stroke protocol -Continue with aspirin -Start lipitor -NIHSS, Neuro checks, Monitor on telemetry -PT/OT/ST evaluations, consult rehab medicine -d/c permissive HTN, IV Vasotec and IV labetalol if SBP >220 -Lipid profile with LDL of 122 -Head CT 07/24/16 noted and review by me with finding of probable lacunar infarct in the left basal ganglia -Brain MRI with evidence of acute CVA, right pontine CVA -2D echocardiogram pending -Neurology consulted History of hypertension: d/c permissive hypertension; and start Lopressor 50mg BID Acute renal failure: Prerenal; Improve with gentle IV fluid hydration and monitor BUN and creatinine. Avoid all nephrotoxic drugs Nicotinic dependence: Counseled to quit, place nicotine patch UTI: Status post Rocephin IV 1 in ED, continue antibiotics pending urine culture DVT prophylaxis: Bilateral SCDs Problem Qualifiers (1) HTN (hypertension): Qualified Codes: I10 - Essential (primary) hypertension Andrez Pena MD Jul 25, 2017 11:30
[2017-07-25] MEDS ORDERED: PRAV40TA PO (12:59)
[2017-07-25] MEDS ORDERED: METO-309 PO (12:59)
[2017-07-25] MEDS ORDERED: ASA325 PO (12:59)
[2017-07-25 14:28] VITALS: BP 150/90
--- NOTE | 2017-07-25 16:00 | ECHRPT ---
Indication: CVA/TIA CONCLUSIONS The left ventricular systolic function is normal with an estimated ejection fraction in the range of 55-60%. Wall thickness is measured at the upper limits of normal. Wall thickness is normal. No significant valvular abnormalities noted BP: 165 / 90 HR: 75 Rhythm: Sinus MEASUREMENTS (Male / Female) Normal Values Technical Quality:Fair 2D ECHO LV Diastolic Diameter PLAX 4.0 cm 4.2 - 5.9 / 3.9 - 5.3 cm LV Systolic Diameter PLAX 3.0 cm IVS Diastolic Thickness 1.0 cm 0.6 - 1.0 / 0.6 - 0.9 cm LVPW Diastolic Thickness 1.0 cm 0.6 - 1.0 / 0.6 - 0.9 cm LV Relative Wall Thickness 0.5 LVOT Diameter 2.1 cm M-MODE Aortic Root Diameter MM 3.1 cm LA Systolic Diameter MM 2.8 cm LA Ao Ratio MM 0.9 AV Cusp Separation MM 2.5 cm DOPPLER AV Peak Velocity 95.0 cm/s AV Peak Gradient 3.6 mmHg LVOT Peak Velocity 70.6 cm/s LVOT Peak Gradient 2.0 mmHg AV Area Cont Eq pk 2.6 cm Mitral E Point Velocity 69.1 cm/s Mitral A Point Velocity 48.9 cm/s Mitral E to A Ratio 1.4 LV E' Lateral Velocity 8.4 cm/s Mitral E to LV E' Lateral Ratio 8.2 LV E' Septal Velocity 7.1 cm/s Mitral E to LV E' Septal Ratio 9.7 PV Peak Velocity 84.2 cm/s PV Peak Gradient 2.8 mmHg FINDINGS LEFT VENTRICLE The left ventricular systolic function is normal with an estimated ejection fraction in the range of 55-60%. Wall thickness is measured at the upper limits of normal. Wall thickness is normal. RIGHT VENTRICLE Normal right ventricular size and systolic function. LEFT ATRIUM The left atrial size is normal. RIGHT ATRIUM The right atrial size is normal. ATRIAL SEPTUM Normal atrial septal thickness without atrial level shunting by limited color doppler interrogation. AORTA The aortic root and proximal ascending aorta are normal in size on limited imaging. MITRAL VALVE Structurally normal mitral valve. No mitral valve stenosis or regurgitation. AORTIC VALVE Trileaflet aortic valve. No aortic valve stenosis or regurgitation. TRICUSPID VALVE Structurally normal tricuspid valve. No tricuspid valve stenosis or regurgitation. PULMONARY VALVE The pulmonary valve is not well visualized. VESSELS The inferior vena cava is normal in size. PERICARDIUM No pericardial effusion. Brando Moore MD, FACC (Electronically Signed) Final Date:25 July 2017 15:59
[2017-07-25 16:08] LABS: HEMOGLOBIN A1C 5.3 % (4.3-6.0)
--- NOTE | 2017-07-25 16:54 | HHI.PR ---
Addendum to Inpatient Note Addendum Reason: Additional Documentation Additional Information 2D echo report wnl therefore will d/c patient at home Discharge patient to home Condition on discharge: Improved Regular Diet as tolerated Ad Bonny activity Rx written:see EMR Follow-up with primary care physician in 1 week Neurology in 1-2 weeks Andrez Pena MD Jul 25, 2017 16:54
[2017-07-25] MEDS ORDERED: ATORVASTATIN 10 MG TAB PO SCH (21:00)
== END 2017-07-25 17:58 | disposition home or self-care (01) | DRG 65 ==
LOC: NEPC 01:43 → NEDA 05:49 → N05B 16:52
PROVIDERS: ADMIT Hospitalist; ATTEND Hospitalist
DX: I63.512 Cerebral infarction due to unspecified occlusion or stenosis of left middle cerebral artery (principal); G81.92 Hemiplegia, unspecified affecting left dominant side; N17.9 Acute kidney failure, unspecified; E86.0 Dehydration; N39.0 Urinary tract infection, site not specified; I10 Essential (primary) hypertension; F17.210 Nicotine dependence, cigarettes, uncomplicated; R29.810 Facial weakness; M54.2 Cervicalgia; Z82.3 Family history of stroke; Z82.49 Family history of ischemic heart disease and other diseases of the circulatory system
CPT/HCPCS: 70450; 70496; 70498; 70551; 71045; 80048; 80053; 80061; 81001; 82550; 82948; 83036; 84484; 85025; 85610; 85730; 87086; 93005; 93306; G8996-GN; G8997-GN; J0696; J1644; J7030; Q9967